=== PATIENT | male | born 1990 | race Caucasian/White ===

== ENCOUNTER 2020-02-07 16:03 | Emergency (ER) | payer OTHER ==
[~2020-02-07] VITALS: Ht 182.9 cm; Wt 136.1 kg
[2020-02-07 16:19] VITALS: BP 136/84
--- NOTE | 2020-02-07 16:26 | NUR ---
29 YO MALE STATED THAT HIS DENTIST SEND HIM HERE D/T HIGH BP. PT HAS NO HX OF HTN. BP HERE WAS W/I NORMAL LIMITS
[2020-02-07 17:20] VITALS: BP 136/84
--- NOTE | 2020-02-07 17:21 | NUR ---
Patient discharged with v/s stable. Written and verbal after care instructions given and explained. Patient verbalized understanding. Ambulatory with steady gait. All questions addressed prior to discharge. Advised to follow up with PMD.
== END 2020-02-07 17:21 | disposition home or self-care (01) ==
LOC: MED 16:03
DX: I10 Essential (primary) hypertension (principal); Z02.89 Encounter for other administrative examinations
CPT/HCPCS: 99281

== ENCOUNTER 2023-02-11 08:35 | Emergency (ER) | payer MEDICAID, OTHER ==
[~2023-02-11] VITALS: Ht 182.9 cm; Wt 152.0 kg
[2023-02-11 08:55] VITALS: BP 162/96; PULSE 89; RESP 20; TEMP 98; O2SAT 96
[2023-02-11 09:59] VITALS: BP 162/96; PULSE 89; RESP 20; TEMP 98; O2SAT 96
[2023-02-11 10:38] LABS: FLU A ANTIGEN negative (NEGATIVE); FLU B ANTIGEN NEGATIVE (NEGATIVE)
== END 2023-02-11 09:59 | disposition home or self-care (01) ==
LOC: MED 08:35
DX: B34.9 Viral infection, unspecified (principal); Z20.822 Contact with and (suspected) exposure to COVID-19; Z79.899 Other long term (current) drug therapy
CPT/HCPCS: 99283

== ENCOUNTER 2023-05-17 17:08 | Emergency (ER) | payer MEDICAID ==
[~2023-05-17] VITALS: Ht 182.9 cm; Wt 136.1 kg
[2023-05-17 17:22] VITALS: BP 128/79; PULSE 89; RESP 18; TEMP 97.7; O2SAT 98
[2023-05-17] MEDS ORDERED: [UNRECOGNIZED DRUG - CODE] PO (17:54)
[2023-05-17 18:01] VITALS: BP 128/79; PULSE 89; RESP 18; TEMP 97.7; O2SAT 98
== END 2023-05-17 18:02 | disposition home or self-care (01) ==
LOC: MED 17:08
DX: R05.9 Cough, unspecified (principal); Z79.899 Other long term (current) drug therapy
CPT/HCPCS: 71046; 99283